=== PATIENT | male | born 1970 | race Two or more races ===

== ENCOUNTER → 2016-10-18 | Outpatient (CLI) | payer OTHER ==
--- NOTE | 2016-10-18 15:14 | RADRPT ---
PROCEDURE: XR Knee. CLINICAL INDICATION: Right knee pain TECHNIQUE: 4 images of the right knee are available for review. COMPARISON: None available FINDINGS: There is no acute fracture. Alignment is normal. Minimal medial femorotibial compartment joint space loss is seen. Soft tissues are grossly unremarkable. IMPRESSION: 1. No radiographic evidence of acute fracture. 2. Minimal medial femorotibial compartment joint space loss. RPTAT: UU .James Montoya MD, MD Date Time Electronically viewed and signed by .James Montoya MD, on 10/18/2016 15:14 .K/
== END | disposition home or self-care (01) ==
LOC: HKI 08:33
PROVIDERS: ATTEND Orthopaedic Surgery
DX: M25.561 Pain in right knee (principal)
CPT/HCPCS: 73564; G0463

== ENCOUNTER → 2016-12-17 | Outpatient (CLI) | payer OTHER ==
--- NOTE | 2016-12-18 07:33 | HKNOTE ---
DATE OF SERVICE: 12/17/2016 CHIEF COMPLAINT: Bilateral knee pain. HISTORY OF PRESENT ILLNESS: This is a 45-year-old male who is complaining of pain in bilateral knee s. He recently had an MRI of the right knee. He is complaining of left knee pain with locking and catching. He has instability. He also has locking, catching, instability of the right knee. The p ain interferes with his activities of daily living. He denies any groin or back pain. He does not use any braces or assist devices. He has performed home exercises without any pain relief. He take s ibuprofen for pain control. GAIT: Nonantalgic gait. No use of assist device. RIGHT KNEE EXAMINATION: Neutral alignment, tender over the medial and lateral joint lines, 0 to 130 degrees range of motion, positive Marleny's test. Negative Truong, negative anterior drawer, neg ative posterior drawer. LEFT KNEE EXAMINATION: Neutral alignment, tender over the medial and lateral joint lines, 0 to 130 degrees range of motion, positive Marleny's test. Negative Truong, negative anterior drawer, nega tive posterior drawer. X-RAYS RIGHT KNEE: Four views of the right knee taken in the office demonstrate no abnormalities. X-RAYS LEFT KNEE: Four views of the left knee taken in the office demonstrate no abnormalities. MRI RIGHT KNEE: There is an oblique tear of the posterior horn of the medial meniscus. There is al so longitudinal tear of the posterior horn of the lateral meniscus. IMPRESSION: A 45-year-old male with right knee medial and lateral meniscus tear and left knee pain. PLAN: We will request authorization for right knee arthroscopy. He will also obtain an MRI of his left knee. He can take ibuprofen for pain control. The patient has mechanical symptoms despite non operative management. The risks of surgery, specifically right knee arthroscopy, were discussed wit h the patient. He would like to proceed with surgery at this time. He will follow up in 6 weeks. Dictated By: ANTONIO GALVEZ/ABDOULAYE Conf#: [id number] DID#: [id number]
--- NOTE | 2016-12-18 13:09 | RADRPT ---
PROCEDURE: XR Knees. CLINICAL INDICATION: Bilateral knee pain. TECHNIQUE: Total of eight views. Weightbearing frontal, oblique, and lateral views of the both kn ees. Patellar views of both knees. COMPARISON: Right knee radiographs dated 10/18/2016. FINDINGS: There is no fracture or dislocation. The soft tissues are normal. There are degenerative changes with osteophytes arising from all 3 joint compartment margins bilater ally. There is mild medial joint compartment narrowing bilaterally. There is no lytic or blastic lesion. There is no radiopaque foreign body. IMPRESSION: 1. 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 2. No acute abnormality. RPTAT: QQ .Inderjit Davila MD, MD Date Time Electronically viewed and signed by .Inderjit Davila MD, on 12/18/2016 13:09 .R/
== END | disposition home or self-care (01) ==
LOC: HKI 15:46
PROVIDERS: ATTEND Orthopaedic Surgery Adult Reconstructive Orthopaedic Surgery
DX: S83.281D Other tear of lateral meniscus, current injury, right knee, subsequent encounter (principal); S83.241D Other tear of medial meniscus, current injury, right knee, subsequent encounter; X58.XXXD Exposure to other specified factors, subsequent encounter; M25.562 Pain in left knee
CPT/HCPCS: 73564; G0463

== ENCOUNTER → 2017-06-17 | Outpatient (CLI) | END | disposition home or self-care (01) ==

== ENCOUNTER 2017-06-18 05:23 | Day surgery (SDC) | END 2017-06-18 11:00 | disposition home or self-care (01) ==

== ENCOUNTER → 2017-07-01 | Outpatient (CLI) | END | disposition home or self-care (01) ==

== ENCOUNTER → 2017-07-18 | Outpatient (CLI) | END | disposition home or self-care (01) ==

== ENCOUNTER → 2017-08-01 | Outpatient (CLI) | END | disposition home or self-care (01) ==